=== PATIENT | female | born 1995 | race Caucasian/White ===

== ENCOUNTER 2017-06-15 12:54 | Emergency (ER) | payer OTHER ==
[2017-06-15 13:00] VITALS: BP 132/72; BMI 24.3
== END 2017-06-15 14:45 | disposition left against medical advice (07) ==
LOC: ER 13:07
DX: S61.219A Laceration without foreign body of unspecified finger without damage to nail, initial encounter (principal); W45.8XXA Other foreign body or object entering through skin, initial encounter
CPT/HCPCS: 99281